=== PATIENT | male | born 1990 | race Caucasian/White ===

== ENCOUNTER 2018-04-05 22:31 | Emergency (ER) | payer MEDICAID ==
[~2018-04-05] VITALS: Ht 172.7 cm; Wt 99.3 kg
[2018-04-05 22:39] VITALS: Ht 172.7 cm; Wt 99.3 kg
[2018-04-06 01:09] VITALS: BP 134/77
== END 2018-04-06 01:09 | disposition home or self-care (01) ==
LOC: ED 22:31
DX: S82.852A Displaced trimalleolar fracture of left lower leg, initial encounter for closed fracture (principal); Y93.51 Activity, roller skating (inline) and skateboarding; Y93.89 Activity, other specified; Y92.89 Other specified places as the place of occurrence of the external cause; Y99.8 Other external cause status
CPT/HCPCS: J1885; J2270; Q0092

== ENCOUNTER 2018-05-15 11:26 | Emergency (ER) | payer MEDICAID ==
[~2018-05-15] VITALS: Ht 175.3 cm; Wt 97.5 kg
[2018-05-15 11:30] VITALS: Ht 175.3 cm; Wt 97.5 kg
[2018-05-15 13:06] VITALS: BP 134/85
== END 2018-05-15 13:06 | disposition home or self-care (01) ==
LOC: ED 11:26
DX: Z76.0 Encounter for issue of repeat prescription (principal)